=== PATIENT | male | born 1970 | race African-American/Black ===

== ENCOUNTER 2017-01-29 10:19 | Emergency (ER) | payer BC ==
[~2017-01-29] VITALS: Wt 70.5 kg
[2017-01-29] MEDS ORDERED: HYDR-906 PO (10:47)
[2017-01-29] MEDS ORDERED: CLIN-73 PO (10:48)
[2017-01-29] MEDS ORDERED: IBUP-1542 PO (10:48)
--- NOTE | 2017-01-29 10:58 | ERD ---
ER Documentation Chief Complaint Date/Time DATE: 01/29/17 TIME: 10:55 Chief Complaint TOOTHACHE, ONSET 2 WEEKS HPI This is a 46-year-old male who presents to the ER with a toothache that started 2 weeks ago. Patient has been trying to get dental care, however he has not been able to. Patient states that dental pain has gotten significantly worse and is now radiating throughout the right side of his face. Patient denies any fevers or chills. He denies any difficulty in swallowing. Patient states that his mother has a hole in it and so the reason why it has been hurting. It is described as throbbing in quality, severe and mildly alleviated by Advil. ROS 12 point review of systems was done, all negative except per HPI. Medications Home Meds Active Scripts Clindamycin Hcl* (Clindamycin Hcl*) 300 Mg Capsule, 300 MG PO TID for 10 Days, CAP Prov:RAMA BARILLAS 01/29/17 Ibuprofen* (Motrin*) 600 Mg Tab, 600 MG PO Q6, #30 TAB Prov:RAMA BARILLAS 01/29/17 Hydrocodone/Acetaminophen ([place] 5-325 Tablet) 1 Each Tablet, 1 TAB PO Q6H Y for PAIN, #20 TAB Prov:RAMA BARILLAS 01/29/17 PMhx/Soc Medical and Surgical Hx: pt denies Medical Hx, pt denies Surgical Hx Hx Alcohol Use: No Hx Substance Use: No Hx Tobacco Use: No Smoking Status: Never smoker Physical Exam Vitals Vital Signs Date Time Temp Pulse Resp B/P Pulse Ox O2 Delivery O2 Flow Rate FiO2 01/29/17 10:21 98.0 60 17 127/80 99 Physical Exam GENERAL: The patient is well developed and appropriate for usual state of health , in no apparent distress. HEENT: Atraumatic. Patient has a hole to the right upper wisdom tooth. There is slight swelling of the gums right upper tooth. There is no pain to palpation to the bottom of the mouth. CHEST: Clear to auscultation bilaterally. There are no rales, wheezes or rhonchi. HEART: Regular rate and rhythm. No murmurs, clicks, rubs or gallops. NEURO: Alert and oriented. SKIN: There is no apparent rash or petechia. The skin is warm and dry. Results 24 hrs Current Medications Medications (Trade) Dose Ordered Sig/Gustavo Route PRN Reason Start Time Stop Time Status Last Admin Dose Admin Ibuprofen (Motrin) 600 mg ONCE ONCE PO 01/29/17 11:00 01/29/17 11:01 Procedures/MDM This is a 46-year-old male presents to the ER with dental pain. Patient does appear to have a cavity, with the beginning of an abscess. Patient will be sent home with [place] and clindamycin. Suspicion for Marcus's angina is low. Suspicion for deep space infection is low. I doubt deep Venous thrombosis. She does not have any facial swelling and is afebrile and well-appearing. He is to follow-up with his primary care doctor within 1-2 days patient to ER sooner if symptoms worsen. My medical decision making shared with the patient he understands and agrees with plan per Departure Diagnosis: Primary Impression: Toothache Condition: Stable Patient Instructions: Dental Abscess, Dental Pain Additional Instructions: Call your primary care doctor TOMORROW for an appointment during the next 1-2 days.See the doctor sooner or return here if your condition worsens before your appointment time. YOU MUST SEE A DENTIST SOON POSSIBLE RAMA BARILLAS Jan 29, 2017 10:58
[2017-01-29] MEDS ORDERED: IBUPROFEN 600 MG TAB PO ONE (11:00)
== END 2017-01-29 11:05 | disposition home or self-care (01) ==
LOC: FTE 10:19
DX: K08.89 Other specified disorders of teeth and supporting structures (principal)
CPT/HCPCS: 99284; Z7610